=== PATIENT | female | born 1960 | race Caucasian/White ===

== ENCOUNTER 2017-02-03 07:34 | Inpatient (IN) | payer MEDICARE, OTHER ==
[2017-02-03] VITALS (8 sets, daily range): BP systolic 121–148; BP diastolic 69–85; PULSE 67–90; RESP 18–22; TEMP 96.4–99.3; O2SAT 84–98
[~2017-02-03] VITALS: Ht 157.5 cm; Wt 75.0 kg
[~2017-02-03 07:34] MED LIST: ACET650T10; CALC500; CARB100S; CLEO300C2; DIAZ5; DOCU100S; FLUO20SO3; LEVS0.124; LOPE1LIQ3; LORA10TA7; LORA2CON; LORT5TAB; TAB-TAB; TRIH2ELI
--- NOTE | 2017-02-03 07:59 | PD ---
HPI Chief Complaint: knee pain Time Seen by Provider: 07:49 Travel History International Travel<30 days: No Contact w/Intl Traveler<30days: No History of Present Illness HPI 56-year-old female presents with right knee pain over the past couple of days. She had an outpatient x-ray of the which showed osteoporosis without fracture. She has prior traumatic brain injury and cannot give me significant additional details but states no other concurrent complaints. She presents by ambulance and has detention paperwork. PFSH Past Medical History Narrative Medical By records Arthritis: No Asthma: No Autoimmune Disease: No Blood Disorders: No Anxiety: Yes Depression: Yes Heart Rhythm Problems: No Cancer: No Cardiovascular Problems: No High Cholesterol: No Chemotherapy: No Chest Pain: No Congestive Heart Failure: No COPD: No Cerebrovascular Accident: No Diabetes: No Diminished Hearing: No Endocrine: No Gastrointestinal Disorders: Yes (MALNUTRITION) GERD: No Glaucoma: No Genitourinary: No Headaches: No Hepatitis: No Hiatal Hernia: No Hypertension: No Immune Disorder: No Kidney Stones: No Musculoskeletal: No Neurologic: Yes Psychiatric: Yes Reproductive: No Respiratory: No Migraines: No Myocardial Infarction: No Radiation Therapy: No Renal Failure: No Seizures: Yes Sickle Cell Disease: No Sleep Apnea: No Thyroid Disease: No Ulcer: No Past Surgical History Narrative Surgical By records Abdominal Surgery: No AICD: No Appendectomy: No Arteriovenous Shunt: No Body Medical Devices: PEG TUBE LLQ Cardiac Surgery: No Cholecystectomy: No Ear Surgery: No Endocrine Surgery: Yes (TONSILLECTOMY) Eye Surgery: No Genitourinary Surgery: No Gynecologic Surgery: Yes (CHELSEY) Hysterectomy: Yes Insulin Pump: No Joint Replacement: No Neurologic Surgery: No Oral Surgery: No Pacemaker: No Thoracic Surgery: No Tonsillectomy: Yes Social History Alcohol Use: No Tobacco Use: No Substance Use: No Allergies-Medications (Allergen,Severity, Reaction): Coded Allergies: Penicillin (Verified Allergy, Severe, unknown, 03/12/07) Pseudoephedrine (Verified Allergy, Severe, unknown, 03/12/07) Reported Meds & Prescriptions Reported Meds & Active Scripts Active Reported Baclofen 10 Mg Tab 10 Mg PO TID Ativan (Lorazepam) 0.5 Mg Tab 0.5 Mg PO Q8H PRN Fosamax (Alendronate Sodium) 70 Mg Tab 70 Mg PO Q7D Trihexyphenidyl (Trihexyphenidyl HCl) 2 Mg Tab 2 Mg PO TID Zanaflex (Tizanidine HCl) 2 Mg Cap 2 Mg PO TID Glycopyrrolate 1 Mg Tab 1 Mg PO TID Singulair (Montelukast Sodium) 10 Mg Tab 10 Mg PO DAILY Nuedexta 20-10 mg (Dextromethorphan HBr-Quinidine) 1 Cap Cap 1 Cap PO BID Nuedexta 20-10 mg (Dextromethorphan HBr-Quinidine) 1 Cap Cap 1 Cap PO DAILY Calcium 600 (Calcium Carbonate) 1,500 Mg Tab 600 Mg PO Calcium 600 (Calcium Carbonate) 1,500 Mg Tab 1,500 Mg PO Milk of Magnesia Liq (Magnesium Hydroxide) 400 Mg/5 Ml Susp 30 Ml PO ONCE Tegretol (Carbamazepine) 200 Mg Tab 200 Mg PO BID Urecholine (Bethanechol Chloride) 25 Mg Tab 25 Mg PO Q8HR Tegretol (Carbamazepine) 200 Mg Tab 200 Mg PO BID Vitamin D3 (Cholecalciferol) 1,000 Unit Tab 1,000 Units PO DAILY Mobic (Meloxicam) 15 Mg Tab 15 Mg PO DAILY Tylenol (Acetaminophen) 325 Mg Tab 325 Mg PO BID Bisacodyl EC (Bisacodyl) 5 Mg Tabec 5 Mg PO DAILY PRN Review of Systems ROS Limitations: Poor Historian Physical Exam Exam Limitations: Poor Historian Narrative GENERAL: Pleasant, well-developed patient. SKIN: Warm and dry. HEAD: Normocephalic and atraumatic. EYES: No injection or drainage. ENT: No nasal drainage noted. NECK: Supple, trachea midline. CARDIOVASCULAR: Regular rate and rhythm RESPIRATORY: Breath sounds equal bilaterally at apices. No accessory muscle use. GASTROINTESTINAL: Abdomen nondistended. EXTREMITIES: Pain with palpation of right knee with mild swelling, no pain with other joints , neurovascularly intact, no lacerations over, compartments soft. NEUROLOGICAL: Awake, contractures noted, will answer yes or no Data Data Last Documented VS Vital Signs Date Time Temp Pulse Resp B/P Pulse Ox O2 Delivery O2 Flow Rate FiO2 02/03/17 07:45 98.8 90 20 141/80 84 Orders Magnesium (Mg) (02/03/17 07:49) Phosphorus (Po4) (02/03/17 07:49) Complete Blood Count With Diff (02/03/17 07:49) Basic Metabolic Panel (Bmp) (02/03/17 07:49) Act Partial Throm Time (Ptt) (02/03/17 07:49) Prothrombin Time / Inr (Pt) (02/03/17 07:49) Chest, Single Ap (02/03/17 ) Iv Access Insert/Monitor (02/03/17 07:49) Ecg Monitoring (02/03/17 07:49) Oximetry (02/03/17 07:49) Us Leg Venous Doppler Bilat (02/03/17 ) Ct Pulmonary Angiogram (02/03/17 ) Vascular Access Team Consult/P PRN (02/03/17 08:31) Vascular Poc Ultrasound (02/03/17 ) Ketorolac Inj (Toradol Inj) (02/03/17 09:15) Iohexol 350 Inj (Omnipaque 350 Inj) (02/03/17 09:54) B-Type Natriuretic Peptide (02/03/17 10:25) Admit Order (Ed Use Only) (02/03/17 10:27) Labs Laboratory Tests Test 02/03/17 09:00 White Blood Count 8.3 TH/MM3 Red Blood Count 3.53 MIL/MM3 Hemoglobin 11.9 GM/DL Hematocrit 34.1 % Mean Corpuscular Volume 96.5 FL Mean Corpuscular Hemoglobin 33.7 PG Mean Corpuscular Hemoglobin 34.9 % Concent Red Cell Distribution Width 14.1 % Platelet Count 223 TH/MM3 Mean Platelet Volume 8.4 FL Neutrophils (%) (Auto) 80.7 % Lymphocytes (%) (Auto) 10.2 % Monocytes (%) (Auto) 5.6 % Eosinophils (%) (Auto) 2.8 % Basophils (%) (Auto) 0.7 % Neutrophils # (Auto) 6.7 TH/MM3 Lymphocytes # (Auto) 0.8 TH/MM3 Monocytes # (Auto) 0.5 TH/MM3 Eosinophils # (Auto) 0.2 TH/MM3 Basophils # (Auto) 0.1 TH/MM3 CBC Comment DIFF FINAL Differential Comment Prothrombin Time 10.6 SEC Prothromb Time International 1.0 RATIO Ratio Activated Partial 34.9 SEC Thromboplast Time Sodium Level 136 MEQ/L Potassium Level 4.2 MEQ/L Chloride Level 101 MEQ/L Carbon Dioxide Level 29.0 MEQ/L Anion Gap 6 MEQ/L Blood Urea Nitrogen 21 MG/DL Creatinine 0.63 MG/DL Estimat Glomerular Filtration 97 ML/MIN Rate Random Glucose 123 MG/DL Calcium Level 8.9 MG/DL Phosphorus Level 3.1 MG/DL Magnesium Level 2.3 MG/DL MDM Medical Decision Making Medical Screen Exam Complete: Yes Emergency Medical Condition: Yes Medical Record Reviewed: Yes (past history confirmed) Interpretation(s) CBC & BMP Diagram 02/03/17 09:00 Last 24 hours Impressions Lower Extremity Ultrasound 02/03/17 0000 Signed Impressions: Service Date/Time: Friday, February 03, 2017 08:31 - CONCLUSION: Negative for deep venous thrombosis. Harvey Montano MD FACR Chest X-Ray 02/03/17 0000 Signed Impressions: Service Date/Time: Friday, February 03, 2017 07:48 - CONCLUSION: Underated otherwise negative. Harvey Montano MD FACR CT Angiography 02/03/17 0000 Signed Impressions: Service Date/Time: Friday, February 03, 2017 09:49 - CONCLUSION: Probable mild congestive failure without central pulmonary emboli. Harvey Montano MD FACR Differential Diagnosis DVT, PE, pneumonia, strain, arthritis Narrative Course Will check blood work, chest x-ray, Doppler ultrasound and reevaluate Hypoxemia with possible mild CHF on CT. Patient still requiring oxygen. We'll admit to the hospital for further workup. Right knee may need MRI in-house versus outpatient but is not emergent at this time already had outpatient x-ray recently that was negative, patient has no fever or white count and no DVT on ultrasound Physician Communication Physician Communication dr wilburn states to place in observation, will place orders in one hour Diagnosis Primary Impression: Hypoxia Additional Impression: Knee pain Qualified Code: M25.561 - Acute pain of right knee Admitting Information Admitting Physician Requests: Observation Inga Berry MD Feb 03, 2017 07:58
--- NOTE | 2017-02-03 08:22 | RADRPT ---
EXAM DATE/TIME: 02/03/2017 07:48 [facility] COMPARISON: No previous studies available for comparison. INDICATIONS : Palpitations MEDICAL HISTORY : None. SURGICAL HISTORY : None. ENCOUNTER: Initial ACUITY: 1 day PAIN SCORE: Non-responsive. LOCATION: chest FINDINGS: The lungs are under aerated but clear. The heart and pulmonary vascularity are normal. Degenerative changes are present about both shoulders. CONCLUSION: Underated otherwise negative. Harvey Montano MD FACR on February 03, 2017 at 8:19 Board Certified Radiologist. This report was verified electronically.
--- NOTE | 2017-02-03 09:02 | RADRPT ---
EXAM DATE/TIME: 02/03/2017 08:31 [facility] COMPARISON: No previous studies available for comparison. INDICATIONS : Bilateral leg swelling. MEDICAL HISTORY : Gastroesophageal reflux disease. Genetic torsional dystonia. Cauda equina syndrome. Pseudobulbar af fect. SURGICAL HISTORY : Tonsillectomy.Hysterectomy. ENCOUNTER: Initial ACUITY: 1 day PAIN SCORE: Non-responsive LOCATION: Bilateral legs. TECHNIQUE: Venous ultrasound of the left and right leg was performed from the inguinal ligament to the proximal calf. Real-time, color Doppler and spectral tracing, compression and augmentation techniques were us ed. FINDINGS: RIGHT LEG: There is normal compressibility of the deep venous system from the inguinal region to the proximal ca lf. No echogenic clot is seen in the lumen of the common femoral, femoral, popliteal, and posterior tibial veins. There is a normal response of the venous system to proximal and distal augmentation an d respiration. LEFT LEG: There is normal compressibility of the deep venous system from the inguinal region to the proximal ca lf. No echogenic clot is seen in the lumen of the common femoral, femoral, popliteal, and posterior tibial veins. There is a normal response of the venous system to proximal and distal augmentation an d respiration. CONCLUSION: Negative for deep venous thrombosis. Harvey Montano MD FACR on February 03, 2017 at 9:00 Board Certified Radiologist. This report was verified electronically.
[2017-02-03] MEDS ORDERED: MILKSUS PO (09:04)
[2017-02-03] MEDS ORDERED: TRIH2 PO (09:04)
[2017-02-03] MEDS ORDERED: VITA100064 PO (09:04)
[2017-02-03] MEDS ORDERED: BETH25 PO (09:04)
[2017-02-03] MEDS ORDERED: MONT10TA2 PO (09:04)
[2017-02-03] MEDS ORDERED: FLEE5TAB PO (09:04)
[2017-02-03] MEDS ORDERED: NUED20CA PO ×2 (09:04)
[2017-02-03] MEDS ORDERED: MOBI15TA PO (09:04)
[2017-02-03] MEDS ORDERED: BACL10TA PO (09:04)
[2017-02-03] MEDS ORDERED: FOSA70TA PO (09:04)
[2017-02-03] MEDS ORDERED: LORA-392 PO (09:04)
[2017-02-03] MEDS ORDERED: ZANA2CAP PO (09:04)
[2017-02-03] MEDS ORDERED: TEGR200T PO ×2 (09:04)
[2017-02-03] MEDS ORDERED: GLYC1TAB17 PO (09:04)
[2017-02-03] MEDS ORDERED: CALCTAB94 PO (09:04)
[2017-02-03] MEDS ORDERED: TYLE325T PO (09:04)
[2017-02-03] MEDS ORDERED: KETOROLAC TROMETHAMINE 30 MG/ML (IVP) VIAL IV PUSH ONE (09:15)
[2017-02-03 09:18] LABS: AUTOMATED NEUTROPHIL # 6.7 TH/MM3 (1.8-7.7); BASOPHIL # 0.1 TH/MM3 (0-0.2); BASOPHIL % 0.7 % (0.0-2.0); EOSINOPHIL # 0.2 TH/MM3 (0-0.4); EOSINOPHIL % 2.8 % (0.0-4.0); HEMATOCRIT 34.1 % (35.0-46.0); HEMO FLAGS DIFF FINAL; LYMPH % 10.2 % (9.0-44.0); LYMPHOCYTE # 0.8 TH/MM3 (1.0-4.8); MEAN CELL VOLUME 96.5 FL (80.0-100.0); MEAN CORPUSCULAR HEMOGLOBIN 33.7 PG (27.0-34.0); MEAN CORPUSCULAR HGB CONC 34.9 % (32.0-36.0); MONO % 5.6 % (0.0-8.0); NEUT % 80.7 % (16.0-70.0); PLATELET COUNT 223 TH/MM3 (150-450); RED BLOOD COUNT 3.53 MIL/MM3 (4.00-5.30); RED CELL DISTRIBUTION WIDTH 14.1 % (11.6-17.2); WHITE BLOOD COUNT 8.3 TH/MM3 (4.0-11.0)
[2017-02-03 09:27] LABS: APTT (PATIENT) 34.9 SEC (24.3-30.1); PROTHROMBIN TIME - PATIENT 10.6 SEC (9.8-11.6)
[2017-02-03 09:31] LABS: MAGNESIUM 2.3 MG/DL (1.5-2.5); POTASSIUM 4.2 MEQ/L (3.5-5.1)
[2017-02-03] MEDS ORDERED: IOHEXOL 350 MG/ML 10 ML VIAL (for RAD DIAG) IV ONE (09:54)
--- NOTE | 2017-02-03 10:23 | RADRPT ---
EXAM DATE/TIME: 02/03/2017 09:49 [facility] COMPARISON: No previous studies available for comparison. INDICATIONS : Shortness of breath. IV CONTRAST: 75 cc Omnipaque 350 (iohexol) IV RADIATION DOSE: 19.06 CTDIvol (mGy) ; Patient positioning; Patient body habitus MEDICAL HISTORY : Cauda equina syndrome SURGICAL HISTORY : Peg tube ENCOUNTER: Initial ACUITY: 1 day PAIN SCALE: 10/10 LOCATION: Bilateral chest TECHNIQUE: Volumetric scanning of the chest was performed using a pulmonary embolism protocol MIP images were re constructed. Using automated exposure control and adjustment of the mA and/or kV according to patien t size, radiation dose was kept as low as reasonably achievable to obtain optimal diagnostic quality images. DICOM format image data is available electronically for review and comparison. Follow-up recommendations for incidentally detected pulmonary nodules are based at a minimum on nodul e size and patient risk factors according to Fleischner Society Guidelines. FINDINGS: There is mild interstitial edema and minimal cardiomegaly. There are no suspicious lung lesions iden tified. There is no evidence for central pulmonary emboli. There is no axillary or mediastinal olga opathy. There is no pericardial effusion. Degenerative changes are present in the thoracic spine. spine. CONCLUSION: Probable mild congestive failure without central pulmonary emboli. Harvey Montano MD FACR on February 03, 2017 at 10:20 Board Certified Radiologist. This report was verified electronically.
[2017-02-03] MEDS ORDERED: NALOXONE HCL 0.4 MG/ML AMP IV PRN (13:00)
[2017-02-03] MEDS ORDERED: ONDANSETRON HCL 4 MG/2 ML VIAL IVP PRN (13:00)
[2017-02-03] MEDS ORDERED: SODIUM CHLORIDE 0.9% FLUSH 10 ML FLUSH IV FLUSH PRN (13:00)
[2017-02-03] MEDS ORDERED: FUROSEMIDE 20 MG/2 ML VIAL IV PUSH ONE (13:00)
--- NOTE | 2017-02-03 13:35 | HHI.PR ---
Vitals/Results Vital Signs Vital Signs Date Time Temp Pulse Resp B/P Pulse Ox O2 Delivery O2 Flow Rate FiO2 02/03/17 12:21 87 144/85 97 Nasal Cannula 02/03/17 11:10 84 22 140/74 94 Nasal Cannula 3 02/03/17 07:45 98.8 90 20 141/80 84 CBC/BMP: 02/03/17 0900 02/03/17 0900 Lab Results Laboratory Tests Test 02/03/17 09:00 White Blood Count 8.3 TH/MM3 Red Blood Count 3.53 MIL/MM3 Hemoglobin 11.9 GM/DL Hematocrit 34.1 % Mean Corpuscular Volume 96.5 FL Mean Corpuscular Hemoglobin 33.7 PG Mean Corpuscular Hemoglobin 34.9 % Concent Red Cell Distribution Width 14.1 % Platelet Count 223 TH/MM3 Mean Platelet Volume 8.4 FL Neutrophils (%) (Auto) 80.7 % Lymphocytes (%) (Auto) 10.2 % Monocytes (%) (Auto) 5.6 % Eosinophils (%) (Auto) 2.8 % Basophils (%) (Auto) 0.7 % Neutrophils # (Auto) 6.7 TH/MM3 Lymphocytes # (Auto) 0.8 TH/MM3 Monocytes # (Auto) 0.5 TH/MM3 Eosinophils # (Auto) 0.2 TH/MM3 Basophils # (Auto) 0.1 TH/MM3 CBC Comment DIFF FINAL Differential Comment Prothrombin Time 10.6 SEC Prothromb Time International 1.0 RATIO Ratio Activated Partial 34.9 SEC Thromboplast Time Sodium Level 136 MEQ/L Potassium Level 4.2 MEQ/L Chloride Level 101 MEQ/L Carbon Dioxide Level 29.0 MEQ/L Anion Gap 6 MEQ/L Blood Urea Nitrogen 21 MG/DL Creatinine 0.63 MG/DL Estimat Glomerular Filtration 97 ML/MIN Rate Random Glucose 123 MG/DL Calcium Level 8.9 MG/DL Phosphorus Level 3.1 MG/DL Magnesium Level 2.3 MG/DL Assessment/Plan Assessment/Plan patient seen and examined pLease refer to admission H & P for details 56 yr old female with h/o TBI admiited with hypoxia consult pulm oxygen no PE echo Lasix 20 mg i/v x 1 no fever, or leucocytosis to suggest an infectious process monitor off antibiotics no family at bedside Nnii Dalton MD Feb 03, 2017 13:35
[2017-02-03] MEDS: HEPARIN SODIUM - SQ 10,000 UNITS/ML VIAL SQ SCH (16:03)
--- NOTE | 2017-02-03 17:12 | MB ---
cc: ANG GRUBER DATE OF CONSULTATION: 02/03/2017. REASON FOR CONSULTATION: Pulmonary management and hypoxia. REQUESTING PHYSICIAN: Dr. Nini Dalton. HISTORY OF PRESENT ILLNESS: Ms. Still is a 56-year-old female who has a history of organic brain syndrome, seizure disorder and history of torticollis. She has received Botox injections. The patient was brought to the emergency room with shortness of breath. The patient is not able to give much history. She starts crying if you ask her any questions. She was evaluated in the emergency room. She had a blood gas done, which showed pH of 7.31, pC02 of 56, p02 of 89, bicarbonate 27. Her white blood cell count is 8.3, hemoglobin 11.9, hematocrit 34.1, MCV 96, platelet count 223,000. Sodium 136, potassium 4.2, chloride 101, carbon dioxide 29, BUN 26, creatinine 0.63. She had a CTA of the chest done and it does not show any pulmonary embolism. She has mild vascular congestion. Ultrasound of the lower extremities does not show any DVT. PAST MEDICAL HISTORY: Her past medical history is significant for: 1. History of seizure disorder. 2. Organic brain syndrome. 3. Traumatic brain injury. 4. History of idiopathic torsional dystonia. 5. History of multiple Botox injections for torticollis. 6. History of dysphagia and PEG-tube placement. MEDICATIONS: She is currently takin. IV fluids. 2. Subcutaneous heparin. ALLERGIES: 1. PENICILLIN. 2. PSEUDOEPFEDRINE. SOCIAL HISTORY: Not available. FAMILY HISTORY: Not available. REVIEW OF SYSTEMS: A review of systems cannot be assessed. PHYSICAL EXAMINATION: GENERAL: An elderly female on nasal cannula. She has mild shortness of breath. VITAL SIGNS: Blood pressure 148/75, heart rate 71, respirations 18, temperature 98.3. HEAD, EYES, EARS, NOSE, THROAT: Pupils are equal and reactive. Oral mucosa and nasal mucosa are normal. NECK: The neck is supple. JVP not raised. CHEST: Air entry equal bilaterally. No rhonchi. CARDIOVASCULAR: S1-S2 normal. ABDOMEN: Abdomen benign. EXTREMITIES: She has contractures. IMPRESSION: 1. Shortness of breath, mild. 2. Hypoxia. 3. There is no pulmonary embolism. 4. No DVT. 5. History of traumatic brain injury and organic brain syndrome. 6. Dysphagia. 7. Torticollis and torsional dystonia. PLAN: 1. I will supplement her oxygen. 2. Keep the saturation greater than 92%. 3. Aerosol treatment as needed. 4. Monitor her electrolytes. Further treatment will depend on the course in the hospital. Thank you, Dr. Dalton, for this consult. MD BHAVANI Yanes/ECTOR /4:05 PM /4:58 PM [facility]
[2017-02-03] MEDS: ACETAMINOPHEN 325 MG TAB PO PRN (17:30)
[2017-02-03] MEDS ORDERED: BISACODYL EC 5 MG TABEC PO PRN (18:15)
[2017-02-03] MEDS ORDERED: MAGNESIUM HYDROXIDE SUSP 30 ML CUP PO SCH (18:15)
--- NOTE | 2017-02-03 18:15 | HHI.PR ---
Objective Objective Results - Vital Signs Date Time Temp Pulse Resp B/P Pulse Ox O2 Delivery O2 Flow Rate FiO2 02/03/17 13:55 74 18 148/75 02/03/17 12:21 87 144/85 97 Nasal Cannula 02/03/17 11:10 84 22 140/74 94 Nasal Cannula 3 02/03/17 07:45 98.8 90 20 141/80 84 Result Diagram: 02/03/17 0900 02/03/17 0900 A/P Assessment and Plan Dictated, [id number] Lucina Tamayo Feb 03, 2017 18:15
--- NOTE | 2017-02-03 18:54 | MH ---
cc: RADHA CHAUDHRY DATE OF ADMISSION 02/03/2017 DATE OF 1960 CHIEF COMPLAINT Per the ER records knee pain. Travel in the last 30 days none. HISTORY OF PRESENT ILLNESS This is a 56-year-old white female who has complained of right knee pain for the last couple of days. On examination the knee is obviously swollen and very painful to touch. She has a blue- looking gel that has been rubbed in to the knee which appears to be Biofreeze and there is currently an ice pack on the knee but she still complains of pain. The patient while in the emergency room had some hypoxiam, was placed on oxygen and was admitted for further evaluation. The patient has a history of traumatic brain injury according to the record but can communicate with her hands and sign language and does shake her head yes and no. The patient is a poor historian and is unable to give situational data. The history is being gathered from the record. PAST MEDICAL HISTORY Includes: 1. Anxiety. 2. Depression. 3. Malnutrition. 4. Neurological disorders. 5. Psychiatric disorders. 6. Seizures. 7. Traumatic brain injury. PAST SURGICAL HISTORY 1. PEG tube left lower quadrant. 2. Tonsillectomy. 3. Hysterectomy. ALLERGIES PENICILLIN, PSEUDOEPHEDRINE. MEDICATIONS Reported: 1. Baclofen. 2. Ativan. 3. Fosamax. 4. Zanaflex. 5. Singulair. 6. . 7. Trihexyphenidyl. 8. Glycopyrrolate. 9. Calcium. 10. Milk of Magnesia. 11. Tegretol. 12. Urecholine. 13. Vitamins. 14. Mobic. 15. Tylenol. 16. Dulcolax. SOCIAL HISTORY The patient currently lives in an [facility]. There is no alcohol, tobacco or illicit drugs noted. REVIEW OF SYSTEMS Poor historian, although the patient does respond to raising her hand and finger up to knee pain. PHYSICAL EXAMINATION VITAL SIGNS: Temperature 98.8, pulse 74, respiratory rate between 18-22. Blood pressure 148/75. O2 saturation originally was 84 in the emergency room and now 97 on 3 liters nasal cannula. GENERAL: This is a short white female looks older than her stated age, resting in the bed. SKIN: Her skin is pale, warm and dry. HEENT: Normocephalic. Eyes, small amount of serous drainage noted to the left eye. No nasal or oral drainage noted. NECK: Short, contorted, bent over where her chin is touching her chest. CARDIOVASCULAR: Rhythm is regular. No obvious murmur or gallop. RESPIRATORY: Decreased breath at her bases. Active rhonchi with cough. ABDOMEN: Round, soft, nondistended. EXTREMITIES: Right knee with moderate amount of swelling, painful to touch. Hands and feet both have contractures. Warm to touch. She is able to use her fingers for communication raising them up or down. NEUROLOGIC: Awake, will shake her head sometimes to simple yes or no questions. LABORATORY DATA Diagnostic data, white blood cell count 8.3, RBC 3.53. Hemoglobin 11.9. Hematocrit 34.1. Neutrophils percentage auto 80.7. PT INR 1.0. Chemistries, sodium 136, potassium 4.2, chloride 101, carbon dioxide 29, anion gap 6, BUN 21, creatinine 0.63. GFR 97. Random glucose 123. BNP 47. Magnesium 2.3. Phosphorus 3.1. Calcium 8.9. IMAGING Showed lower extremity ultrasound negative for DVT. Chest x-ray under-aerated otherwise negative. CT angiography shows mild congestive heart failure without central pulmonary emboli. ASSESSMENT 1. Congestive heart failure. 2. Hypoxia now controlled. 3. History of traumatic brain injury. 4. Acute kidney injury with mild dehydration. 5. Hyperglycemia, mild in the presence of non diabetes. 6. Right knee pain with edema. The patient can have ice packs to her knee and Tylenol for pain. 7. We will reconcile her medications as warranted. PLAN Our plan is to admit. We will monitor her oxygen levels. She did have an episode in the ER with her O2 sat had dropped. She is now maintained on O2 at 2-3 liters. Labs have been reviewed and will be rechecked in the morning. Vascular consult was ordered but has now been cancelled, pulmonary emboli has been ruled out. The patient did receive Toradol 30 mg IV x1 in the emergency room and will receive Tylenol for pain until her O2 sat remains stable. The patient did receive one dose of Lasix 20 mg IV. 2-D echo will be ordered. We will monitor her BNP. DVT prophylaxis with heparin. As neededs have been ordered to cover pain and nausea. Her diet is a regular diet. She has a decreased appetite but is eating chocolate ice cream and chocolate pudding. We will keep her on telemetry, monitor her vital signs q.4h. We have changed her admission to an inpatient status. To my knowledge the patient is full code, full aggressive care and we will continue to monitor. Dictated by: XUAN York MD EDUARD Smith/KK /6:00 PM /6:19 PM
[2017-02-03] MEDS ORDERED: ALENDRONATE SODIUM 70 MG TAB PO SCH (20:00)
[2017-02-03] MEDS: ACETAMINOPHEN 325 MG TAB PO SCH (20:16)
[2017-02-03] MEDS: carBAMazepine 200 MG TAB PO SCH (20:16)
[2017-02-03] MEDS: SODIUM CHLORIDE 0.9% FLUSH 10 ML FLUSH IV FLUSH SCH (21:00)
[2017-02-03] MEDS: BETHANECHOL CHL 25 MG TAB PO SCH (21:17)
[2017-02-04] VITALS (8 sets, daily range): BP systolic 97–124; BP diastolic 42–73; PULSE 59–93; RESP 16–19; TEMP 96.8–98.7; O2SAT 94–100
[2017-02-04] MEDS: HEPARIN SODIUM - SQ 10,000 UNITS/ML VIAL SQ SCH ×2 (00:11→15:32)
[2017-02-04] MEDS: ACETAMINOPHEN 325 MG TAB PO PRN ×2 (04:45→15:31)
[2017-02-04] MEDS: BETHANECHOL CHL 25 MG TAB PO SCH ×3 (04:45→20:53)
[2017-02-04 06:26] LABS: AUTOMATED NEUTROPHIL # 3.8 TH/MM3 (1.8-7.7); BASOPHIL % 0.6 % (0.0-2.0); EOSINOPHIL # 0.3 TH/MM3 (0-0.4); EOSINOPHIL % 4.9 % (0.0-4.0); HEMO FLAGS DIFF FINAL; LYMPH % 18.9 % (9.0-44.0); LYMPHOCYTE # 1.1 TH/MM3 (1.0-4.8); MEAN CELL VOLUME 97.8 FL (80.0-100.0); MEAN CORPUSCULAR HGB CONC 33.7 % (32.0-36.0); MONO % 7.7 % (0.0-8.0); NEUT % 67.9 % (16.0-70.0); PLATELET COUNT 217 TH/MM3 (150-450); RED BLOOD COUNT 3.17 MIL/MM3 (4.00-5.30); RED CELL DISTRIBUTION WIDTH 14.1 % (11.6-17.2); WHITE BLOOD COUNT 5.6 TH/MM3 (4.0-11.0)
[2017-02-04 06:46] LABS: BICARBONATE 28.9 MEQ/L (21.0-32.0)
[2017-02-04] MEDS ORDERED: DEXTROMETHORPHAN HBR QUINIDINE PO SCH (09:00)
[2017-02-04] MEDS: MELOXICAM 15 MG TAB PO SCH (10:19)
[2017-02-04] MEDS: BACLOFEN 10 MG TAB PO SCH ×3 (10:19→18:55)
[2017-02-04] MEDS: carBAMazepine 200 MG TAB PO SCH ×2 (10:20→20:52)
[2017-02-04] MEDS: GLYCOPYRROLATE 1 MG TAB PO SCH ×3 (10:20→18:54)
[2017-02-04] MEDS: ACETAMINOPHEN 325 MG TAB PO SCH ×2 (10:20→20:52)
[2017-02-04] MEDS: TRIHEXYPHENIDYL HCL 2 MG TAB PO SCH ×3 (10:20→18:55)
[2017-02-04] MEDS: MONTELUKAST SODIUM 10 MG TAB PO SCH (10:21)
[2017-02-04] MEDS: SODIUM CHLORIDE 0.9% FLUSH 10 ML FLUSH IV FLUSH SCH ×2 (10:21→20:53)
[2017-02-04] MEDS ORDERED: RESP: ALBUTEROL 2.5 MG/IPRATROPIUM 0.5 MG NEB (PRN) NEB (14:00)
[2017-02-04] MEDS ORDERED: FUROSEMIDE 20 MG/2 ML VIAL IV PUSH ONE (14:00)
--- NOTE | 2017-02-04 15:24 | HHI.PR ---
Subjective Subjective Remarks non verbal moaning, anxious c/o pain, points to right knee contractures to all extremities coughing, audible rales nasal congestion no fever sats 95 on 2L/NC difficult to obtain ROS Review of Systems Constitutional Constitutional Remarks 12 point ROS difficult to complete. Vitals/Results Intake & Output 02/03/17 02/03/17 02/04/17 15:00 23:00 07:00 Intake Total 60 ml 120 ml Balance 60 ml 120 ml Intake Oral 60 ml 120 ml # Voids 2 3 # Bowel Movements 0 0 Vital Signs Vital Signs Date Time Temp Pulse Resp B/P Pulse Ox O2 Delivery O2 Flow Rate FiO2 02/04/17 11:36 98.2 80 19 101/46 95 02/04/17 09:53 97 Nasal Cannula 2.00 02/04/17 07:23 98.6 59 19 97/45 100 02/04/17 04:00 96.8 86 19 124/73 94 02/03/17 23:35 99.3 74 18 140/81 95 02/03/17 20:39 67 02/03/17 20:00 99.3 81 18 142/84 98 02/03/17 16:00 96.4 75 19 121/69 98 CBC/BMP: 02/04/17 0539 02/04/17 0539 Lab Results Laboratory Tests Test 02/04/17 05:39 White Blood Count 5.6 TH/MM3 Red Blood Count 3.17 MIL/MM3 Hemoglobin 10.5 GM/DL Hematocrit 31.0 % Mean Corpuscular Volume 97.8 FL Mean Corpuscular Hemoglobin 33.0 PG Mean Corpuscular Hemoglobin 33.7 % Concent Red Cell Distribution Width 14.1 % Platelet Count 217 TH/MM3 Mean Platelet Volume 8.2 FL Neutrophils (%) (Auto) 67.9 % Lymphocytes (%) (Auto) 18.9 % Monocytes (%) (Auto) 7.7 % Eosinophils (%) (Auto) 4.9 % Basophils (%) (Auto) 0.6 % Neutrophils # (Auto) 3.8 TH/MM3 Lymphocytes # (Auto) 1.1 TH/MM3 Monocytes # (Auto) 0.4 TH/MM3 Eosinophils # (Auto) 0.3 TH/MM3 Basophils # (Auto) 0.0 TH/MM3 CBC Comment DIFF FINAL Differential Comment Sodium Level 138 MEQ/L Potassium Level 4.0 MEQ/L Chloride Level 101 MEQ/L Carbon Dioxide Level 28.9 MEQ/L Anion Gap 8 MEQ/L Blood Urea Nitrogen 21 MG/DL Creatinine 0.56 MG/DL Estimat Glomerular Filtration 112 ML/MIN Rate Random Glucose 103 MG/DL Calcium Level 8.4 MG/DL B-Type Natriuretic Peptide 36 PG/ML Physical Exam General General Appearance: Well Developed, Anxious, Painful Eyes Eye Exam: Pupils Equal, Pupils Reactive Ears & Nose Ears & Nose Exam: Nasal Mucosa [place] Throat Throat Exam: Oral Mucosa [place] & Moist Neck Neck Exam: Neck Supple, Trachea Midline Pulmonary Resp Exam: Crackles Resp Remarks wheezing Cardiology CV Exam: Regular Gastrointestinal/Abdomen GI Exam: Soft, Non-Tender, Bowel Sounds Present, Non-Distended Musculoskeletal MS Exam: Rigidity, Unable to Ambulate MS Remarks contractures to hands, fingers, wrists, feet legs stiff Integumentary Skin Exam: Warm Extremeties Extremities Exam: Pedal Pulses Palpable, Trace Edema Neurologic Neuro Exam: Awake VTE Prophylaxis VTE Prophylaxis Device: SCDs Assessment/Plan Problem List: (1) Hypoxia (2) CHF (congestive heart failure) (3) Knee pain (4) Organic brain syndrome (5) Flexion contractures (6) Seizure disorder (7) Torticollis (8) Hx of traumatic brain injury Assessment/Plan 56-year-old female presented with right knee pain, noted hypoxic Mild CHF per x-ray findings, today noted with increased rales. Received Lasix in ED Hypoxia, etiology unclear, negative for PE We will resume Lasix, 20 mg IV twice a day -2-D echocardiogram pending -We will order DuoNeb's Continue with supplemental oxygen No antibiotics indicated at this time Pulmonology following, input appreciated Acute right knee pain, notable contractures Negative for DVT We will order x-ray of the right knee We will check uric acid -[place] 7.5/325 one tab by mouth every 4 when necessary for pain History of traumatic brain injury, organic brain syndrome, history of torticollis, has multiple contractures Physical therapy Continue with baclofen, Zanaflex, Mobic, Artane Seizure disorder -Seizure precautions Continue Tegretol SCDs for DVT prophylaxis Labs in the morning Discussed with patient Discussed with RN Discussed with Dr. Liz This patient was seen by myself and Dr. Liz, this note is written on his behalf Problem Qualifiers (1) CHF (congestive heart failure): Qualified Code: I50.9 - Acute congestive heart failure, unspecified congestive heart failure type (2) Knee pain: Qualified Code: M25.561 - Acute pain of right knee Berna Terrell Feb 04, 2017 15:24
[2017-02-04] MEDS: RESP: ALBUTEROL 2.5 MG/IPRATROPIUM 0.5 MG NEB (SCH) NEB ×2 (16:40→19:43)
--- NOTE | 2017-02-04 16:42 | RADRPT ---
EXAM DATE/TIME: 02/04/2017 16:12 [place] COMPARISON: No previous studies available for comparison. INDICATIONS : Right knee pain, unknown injury. MEDICAL HISTORY : None. SURGICAL HISTORY : None. ENCOUNTER: Initial ACUITY: 1 day PAIN SCORE: 10/10 LOCATION: Right knee. FINDINGS: There is a complete fracture of distal femur with impaction of the metaphysis into the femoral condyl es. There is diffuse osteopenia to a significant degree. CONCLUSION: Osteopenia and impacted distal femoral fracture. Elmer Morgan MD on February 04, 2017 at 16:39 Board Certified Radiologist. This report was verified electronically.
--- NOTE | 2017-02-04 17:38 | HHI.PR ---
Subjective Remarks 56 YOWF with Organic brain synd, CHF,Hypoxia braething betetr on 2 LNC Moans, follows simple commands C/o Right knee pain Objective Vital Signs Vital Signs Date Time Temp Pulse Resp B/P Pulse Ox O2 Delivery O2 Flow Rate FiO2 02/04/17 16:40 97 Nasal Cannula 2.00 02/04/17 15:21 98.7 93 19 108/63 98 02/04/17 11:36 98.2 80 19 101/46 95 02/04/17 09:53 97 Nasal Cannula 2.00 02/04/17 07:23 98.6 59 19 97/45 100 02/04/17 04:00 96.8 86 19 124/73 94 02/03/17 23:35 99.3 74 18 140/81 95 02/03/17 20:39 67 02/03/17 20:00 99.3 81 18 142/84 98 I/O 02/03/17 02/03/17 02/03/17 02/04/17 02/04/17 02/04/17 06:59 14:59 22:59 06:59 14:59 22:59 Intake Total 60 ml 120 ml 450 ml Balance 60 ml 120 ml 450 ml Intake Oral 60 ml 120 ml 450 ml # Voids 2 3 5 # Bowel Movements 0 0 1 Result Diagram: 02/04/1739 02/04/1739 Objective Remarks GENERAL: MBMN WF, mild sob SKIN: Warm and dry. HEAD: Normocephalic. EYES: No scleral icterus. No injection or drainage. NECK: Supple, trachea midline. No JVD or lymphadenopathy. CARDIOVASCULAR: Regular rate and rhythm without murmurs, gallops, or rubs. RESPIRATORY: Breath sounds equal bilaterally. No accessory muscle use. GASTROINTESTINAL: Abdomen soft, non-tender, nondistended. MUSCULOSKELETAL: No cyanosis, or edema. Contractures BACK: Nontender without obvious deformity. No CVA tenderness. A/P Assessment and Plan Organic brain syndrome Dysnoes, no PE or DVT Right Knee pain [place] PLAN: Supplement 02 pain controll Aerosol nebs PRN Xray knee ordered Vladimir Denise MD Feb 04, 2017 17:38
--- NOTE | 2017-02-04 18:38 | ECHRPT ---
Indication: heart failure CONCLUSIONS Very technically difficult study Overall in limited views, the ejection fraction is most likely normal or low normal, EF 50-55%. BP: / HR: Rhythm: MEASUREMENTS (Male / Female) Normal Values Technical Quality:Very technically difficult study 2D ECHO LV Diastolic Diameter PLAX 4.2 cm 4.2 - 5.9 / 3.9 - 5.3 cm LV Systolic Diameter PLAX 3.3 cm IVS Diastolic Thickness 0.7 cm 0.6 - 1.0 / 0.6 - 0.9 cm LVPW Diastolic Thickness 0.6 cm 0.6 - 1.0 / 0.6 - 0.9 cm LV Relative Wall Thickness 0.3 DOPPLER Mitral E Point Velocity 68.1 cm/s Mitral A Point Velocity 72.1 cm/s Mitral E to A Ratio 0.9 LV E' Lateral Velocity 10.1 cm/s Mitral E to LV E' Lateral Ratio 6.7 LV E' Septal Velocity 6.1 cm/s Mitral E to LV E' Septal Ratio 11.1 FINDINGS LEFT VENTRICLE Normal left ventricular size. Wall thickness is probably normal. Overall in limited views, the ejection fraction is most likely normal or low normal, EF 50-55% RIGHT VENTRICLE The right ventricle was not well visualized. LEFT ATRIUM The left atrium was not well visualized. RIGHT ATRIUM The right atrium is not well visualized. ATRIAL SEPTUM The interatrial septum not well visualized. AORTA The aortic root and proximal ascending aorta are not well visualized. MITRAL VALVE Trace mitral valve regurgitation. No mitral valve stenosis. AORTIC VALVE The aortic valve is not well visualized. No aortic valve stenosis. No aortic valve regurgitation. TRICUSPID VALVE The tricuspid valve is not well visualized. PULMONARY VALVE The pulmonary valve is not well visualized. VESSELS The inferior vena cava was not well visualized. Luis E Montoya DO (Electronically Signed) Final Date:04 February 2017 18:37
[2017-02-04] MEDS: ACETAMINOPHEN/HYDROcodone 325 MG/7.5 MG TAB PO PRN (18:54)
[2017-02-05] VITALS (9 sets, daily range): BP systolic 93–125; BP diastolic 42–65; PULSE 54–75; RESP 16–18; TEMP 97.5–98.5; O2SAT 92–100
[2017-02-05] MEDS: ACETAMINOPHEN/HYDROcodone 325 MG/7.5 MG TAB PO PRN ×5 (01:24→22:34)
[2017-02-05] MEDS: HEPARIN SODIUM - SQ 10,000 UNITS/ML VIAL SQ SCH ×2 (01:24→16:16)
[2017-02-05] MEDS: BETHANECHOL CHL 25 MG TAB PO SCH ×3 (05:56→22:33)
[2017-02-05 08:18] LABS: BICARBONATE 29.8 MEQ/L (21.0-32.0); POTASSIUM 3.8 MEQ/L (3.5-5.1)
[2017-02-05 08:30] LABS: HEMATOCRIT 29.6 % (35.0-46.0); MEAN CELL VOLUME 97.3 FL (80.0-100.0); MEAN CORPUSCULAR HEMOGLOBIN 32.5 PG (27.0-34.0); MEAN CORPUSCULAR HGB CONC 33.4 % (32.0-36.0); PLATELET COUNT 216 TH/MM3 (150-450); RED BLOOD COUNT 3.04 MIL/MM3 (4.00-5.30); RED CELL DISTRIBUTION WIDTH 13.8 % (11.6-17.2); REVIEW FLAG FINAL
[2017-02-05] MEDS: RESP: ALBUTEROL 2.5 MG/IPRATROPIUM 0.5 MG NEB (SCH) NEB ×4 (08:51→19:41)
[2017-02-05] MEDS: ACETAMINOPHEN 325 MG TAB PO SCH ×2 (09:00→22:33)
[2017-02-05] MEDS ORDERED: FUROSEMIDE 20 MG/2 ML VIAL IV PUSH SCH (09:00)
[2017-02-05] MEDS: carBAMazepine 200 MG TAB PO SCH ×2 (10:12→22:33)
[2017-02-05] MEDS: MONTELUKAST SODIUM 10 MG TAB PO SCH (10:12)
[2017-02-05] MEDS: GLYCOPYRROLATE 1 MG TAB PO SCH ×3 (10:13→19:28)
[2017-02-05] MEDS: TRIHEXYPHENIDYL HCL 2 MG TAB PO SCH ×3 (10:13→19:28)
[2017-02-05] MEDS: BACLOFEN 10 MG TAB PO SCH ×3 (10:13→19:28)
[2017-02-05] MEDS: MELOXICAM 15 MG TAB PO SCH (10:13)
[2017-02-05] MEDS: SODIUM CHLORIDE 0.9% FLUSH 10 ML FLUSH IV FLUSH SCH ×2 (10:14→22:33)
--- NOTE | 2017-02-05 13:18 | HHI.PR ---
Subjective Remarks non verbal. Communicating with her device. Complaining of pain in her leg right side from it to ankle mostly in the knee area. Needs some good pain medication contractures to all extremities coughing, some nasal congestion no fever sats 95 on 2L/NC offering no other complaint Review of system 12 point ROS difficult to complete. Objective Objective Results - Vital Signs Date Time Temp Pulse Resp B/P Pulse Ox O2 Delivery O2 Flow Rate FiO2 02/05/17 08:51 97 Nasal Cannula 2.00 02/05/17 08:00 97.9 54 18 104/58 92 02/05/17 04:01 98.1 60 18 102/42 98 02/05/17 00:00 97.7 61 16 108/55 99 02/04/17 20:47 Nasal Cannula 2.00 02/04/17 20:00 60 02/04/17 20:00 98.0 70 16 123/57 98 02/04/17 19:28 Room Air 02/04/17 16:40 97 Nasal Cannula 2.00 02/04/17 15:21 98.7 93 19 108/63 98 I/O 02/04/17 02/04/17 02/04/17 02/05/17 02/05/17 02/05/17 07:00 15:00 23:00 07:00 15:00 23:00 Intake Total 120 ml 450 ml 240 ml 240 ml Balance 120 ml 450 ml 240 ml 240 ml Intake Oral 120 ml 450 ml 240 ml 240 ml # Voids 3 5 1 1 # Bowel Movements 0 1 0 Result Diagram: 02/05/17 0620 02/05/17 0620 Other Results Laboratory Tests Test 02/05/17 06:20 White Blood Count 5.0 Red Blood Count 3.04 Hemoglobin 9.9 Hematocrit 29.6 Mean Corpuscular Volume 97.3 Mean Corpuscular Hemoglobin 32.5 Mean Corpuscular Hemoglobin 33.4 Concent Red Cell Distribution Width 13.8 Platelet Count 216 Mean Platelet Volume 8.0 Sodium Level 137 Potassium Level 3.8 Chloride Level 99 Carbon Dioxide Level 29.8 Anion Gap 8 Blood Urea Nitrogen 16 Creatinine 0.46 Estimat Glomerular Filtration 140 Rate Random Glucose 100 Calcium Level 8.4 Physical Exam Physical Exam General General Appearance: Well Developed, Anxious, Painful Eyes Eye Exam: Pupils Equal, Pupils Reactive Ears & Nose Ears & Nose Exam: Nasal Mucosa [place] Throat Throat Exam: Oral Mucosa [place] & Moist Neck Neck Exam: Neck Supple, Trachea Midline Pulmonary Resp Exam: good air entry bilaterally Resp Remarks Occasional wheezing bibasally Cardiology CV Exam: Regular Gastrointestinal/Abdomen GI Exam: Soft, Non-Tender, Bowel Sounds Present, Non-Distended Musculoskeletal MS Exam: Rigidity, Unable to Ambulate MS Remarks contractures to hands, fingers, wrists, feet legs stiff. Right lower extremity in soft cast Integumentary Skin Exam: Warm Extremeties Extremities Exam: Pedal Pulses Palpable, Trace Edema Neurologic Neuro Exam: Awake VTE Prophylaxis VTE Prophylaxis Device: SCDs A/P Assessment and Plan (1) Hypoxia (2) CHF (congestive heart failure) (3) Knee pain (4) Organic brain syndrome (5) Flexion contractures (6) Seizure disorder (7) Torticollis (8) Hx of traumatic brain injury Plan 56-year-old female presented with right knee pain, noted hypoxic Mild CHF per x-ray findings. Received Lasix in ED Hypoxia, etiology unclear, negative for PE We will resume Lasix, 20 mg IV twice a day -2-D echocardiogram pending -We will order DuoNeb's Continue with supplemental oxygen. Pulse ox of high 90s on 2 L No antibiotics indicated at this time Pulmonology following, input appreciated Acute right knee pain, notable contractures Negative for DVT distal femur fracture on x-ray of the right knee within normal limits uric acid -[place] 7.5/325 one tab by mouth every 4 when necessary for pain. Also had morphine on a when necessary basis. -Plan for orthopedic consult History of traumatic brain injury, organic brain syndrome, history of torticollis, has multiple contractures Physical therapy Continue with baclofen, Zanaflex, Mobic, Artane Seizure disorder -Seizure precautions Continue Tegretol SCDs And heparin for DVT prophylaxis Labs in the morning Discussed with patient Discussed with Yamila Leonard MD Feb 05, 2017 13:17
[2017-02-05] MEDS ORDERED: LIDOCAINE HCL 5% PATCH T-DERMAL SCH (14:00)
[2017-02-05] MEDS ORDERED: MORPHINE SULFATE 4 MG/ML INJ IV PUSH PRN (15:00)
--- NOTE | 2017-02-05 19:51 | HHI.PR ---
Subjective Remarks 56 YOWF with Organic brain synd, CHF,Hypoxia braething betetr on 2 C Moans, follows simple commands C/o Right knee pain Knee in brace Objective Vital Signs Vital Signs Date Time Temp Pulse Resp B/P Pulse Ox O2 Delivery O2 Flow Rate FiO2 02/05/17 19:43 97 Nasal Cannula 2.00 02/05/17 19:13 Nasal Cannula 2.00 02/05/17 16:00 98.5 61 18 125/65 100 02/05/17 12:00 97.5 58 18 93/50 95 02/05/17 08:51 97 Nasal Cannula 2.00 02/05/17 08:00 97.9 54 18 104/58 92 02/05/17 04:01 98.1 60 18 102/42 98 02/05/17 00:00 97.7 61 16 108/55 99 02/04/17 20:47 Nasal Cannula 2.00 02/04/17 20:00 60 02/04/17 20:00 98.0 70 16 123/57 98 I/O 02/04/17 02/04/17 02/04/17 02/05/17 02/05/17 02/05/17 07:00 15:00 23:00 07:00 15:00 23:00 Intake Total 120 ml 450 ml 240 ml 240 ml 360 ml Balance 120 ml 450 ml 240 ml 240 ml 360 ml Intake Oral 120 ml 450 ml 240 ml 240 ml 360 ml # Voids 3 5 1 1 3 # Bowel Movements 0 1 0 0 Result Diagram: 02/05/1720 02/05/17 0620 Objective Remarks GENERAL: MBMN WF, mild sob SKIN: Warm and dry. HEAD: Normocephalic. EYES: No scleral icterus. No injection or drainage. NECK: Supple, trachea midline. No JVD or lymphadenopathy. CARDIOVASCULAR: Regular rate and rhythm without murmurs, gallops, or rubs. RESPIRATORY: Breath sounds equal bilaterally. No accessory muscle use. GASTROINTESTINAL: Abdomen soft, non-tender, nondistended. MUSCULOSKELETAL: No cyanosis, or edema. Contractures BACK: Nontender without obvious deformity. No CVA tenderness. A/P Assessment and Plan Organic brain syndrome Dysnoes, no PE or DVT Right Knee pain [place] PLAN: Supplement 02 pain controll Aerosol nebs PRN PO Vladimir Berger MD Feb 05, 2017 19:50
[2017-02-05] MEDS ORDERED: REMOVE OLD LIDOCAINE PATCH T-DERMAL SCH (21:00)
[2017-02-06] VITALS (7 sets, daily range): BP systolic 101–112; BP diastolic 44–68; PULSE 65–77; RESP 16; TEMP 97.4–98.6; O2SAT 92–98
[2017-02-06] MEDS: HEPARIN SODIUM - SQ 10,000 UNITS/ML VIAL SQ SCH ×2 (02:20→12:30)
[2017-02-06] MEDS ORDERED: REMOVE OLD LIDOCAINE PATCH T-DERMAL SCH (04:00)
[2017-02-06] MEDS: BETHANECHOL CHL 25 MG TAB PO SCH ×2 (06:30→14:00)
[2017-02-06] MEDS: ACETAMINOPHEN/HYDROcodone 325 MG/7.5 MG TAB PO PRN ×3 (06:30→17:10)
[2017-02-06] MEDS: RESP: ALBUTEROL 2.5 MG/IPRATROPIUM 0.5 MG NEB (SCH) NEB ×3 (08:22→15:44)
--- NOTE | 2017-02-06 08:30 | MB ---
cc: MINDA ASCENCIO M.D. DATE OF CONSULTATION 02/05/17 CHIEF COMPLAINT Right knee pain. HISTORY OF PRESENT ILLNESS This is a 56-year-old white female who presented to the emergency department with complaints of right knee pain. The patient states the onset of pain was 5 or 6 days. The patient feels that the injury to the knee occurred when the ELECTRICIAN'S HELPER at her assisted-living facility was transferring her in a Abigail lift. The patient states she pushed down on her leg bending it backward. The patient had immediate pain. The patient does have a history of a traumatic brain injury and has a difficult time communicating. The patient does have a I-Pad type device that she can type on to communicate. This was used today during our conversation. The patient is a poor historian and has a difficult time giving situational data. REVIEW OF SYSTEMS Negative times 12 except for what is stated in the HPI. PAST MEDICAL HISTORY Includes anxiety, depression, neurologic disorders secondary to a traumatic brain injury, and seizures. PAST SURGICAL HISTORY Includes PEG tube placement, tonsillectomy, and hysterectomy. ALLERGIES PENICILLIN AND PSEUDOEPHEDRINE. MEDICATIONS Include: 1. Baclofen. 2. Ativan. 3. Fosamax. 4. Zanaflex. 5. Singulair. 6. Glycopyrrolate. 7. Calcium. 8. Milk of Magnesia. 9. Tegretol. 10. Vitamins. 11. Mobic. 12. Tylenol. 13. Dulcolax. SOCIAL HISTORY The patient currently lives in an CUSTODIAL. The patient denies alcohol, tobacco or illicit drug use. PHYSICAL EXAMINATION VITAL SIGNS: Are as follows: Temperature 97.9, pulse 54, respirations 18, blood pressure 104/58, pulse ox 92% on room air. GENERAL: The patient is a well-nourished white female in no acute distress. The patient does have some obvious contractures of the hands and feet. SKIN: The skin is pale, warm, and dry. HEENT: Head is normocephalic. Eyes are ELLIOT, nares are patent. NECK: Neck is supple and trachea is midline. CARDIOVASCULAR: The patient has regular rate and rhythm. RESPIRATORY: The patient has symmetric chest wall rise and nonlabored breathing. ABDOMEN: Abdomen is soft, round and nontender. EXTREMITIES: The patient does have contractures about the bilateral ankles and hands. The patient moves the left knee and hip without pain and is it nontender. The patient moves her bilateral wrists, elbows and shoulders without pain and is nontender. The patient does have moderate tenderness about the right knee with limited range of motion. The patient was wearing a canvas knee splint which was removed for examination. The patient's skin is intact about the right knee. NEUROLOGIC: The patient is awake and is able to communicate via an I-Pad type device. The patient also answers appropriately to questions. LABORATORY DATA Labs taken on 02/05/2017 shows white blood cells are 5, hemoglobin 9.9, hematocrit 29.6, platelets 216, creatinine is 0.46, glucose is 100. IMAGING STUDIES There is an x-ray two views of the right knee taken on 02/04/2017 which reads as osteopenia with impacted distal femoral fracture. I did review these images and agree with the radiologist's interpretation. IMPRESSION 1. Right distal femur, impacted fracture. 2. History of traumatic brain injury with difficulty communicating. 3. Bilateral ankle and wrist contractures. MEDICAL DECISION MAKING This is a difficult situation as the patient does have a history which is complicated with a traumatic brain injury. The patient normally is a non-ambulator secondary to contractures about the upper and lower extremities. After reviewing the images and the patient's general condition I do recommend nonoperative management for the right knee. I do not feel that surgery is going to benefit the patient's current quality of life. We had a lengthy discussion regarding this. The patient does agree with the plan of care. Currently, I have recommended a well-padded knee immobilizer to limit the patient's range of motion of the right knee and allow for healing. The patient will be non-weightbearing on the right lower extremity. The patient should use ice for swelling. We will manage the patient's pain with pain medication. We will see the patient in the office for close follow-up to ensure that the overall position of the fracture remains stable. I have reviewed the above impression and plan of care with Dr. Ascencio and he agrees with this documentation. Dictated by XUAN Kwok MD CHRIS Gallagher/ROSALBA /5:27 PM /8:25 AM
[2017-02-06] MEDS: SODIUM CHLORIDE 0.9% FLUSH 10 ML FLUSH IV FLUSH SCH (09:00)
[2017-02-06] MEDS ORDERED: FUROSEMIDE 20 MG TAB PO SCH (09:00)
[2017-02-06] MEDS: carBAMazepine 200 MG TAB PO SCH (10:30)
[2017-02-06] MEDS: ACETAMINOPHEN 325 MG TAB PO SCH (10:30)
[2017-02-06] MEDS: TRIHEXYPHENIDYL HCL 2 MG TAB PO SCH ×3 (10:31→17:10)
[2017-02-06] MEDS: MELOXICAM 15 MG TAB PO SCH (10:31)
[2017-02-06] MEDS: GLYCOPYRROLATE 1 MG TAB PO SCH ×3 (10:31→17:09)
[2017-02-06] MEDS: MONTELUKAST SODIUM 10 MG TAB PO SCH (10:31)
[2017-02-06] MEDS: BACLOFEN 10 MG TAB PO SCH ×3 (10:31→17:10)
--- NOTE | 2017-02-06 13:09 | HHI.PR ---
Subjective Subjective Remarks using board to communicate getting ready to have lunch pain controlled pleasant no resp. distress no cp no sob ok for dc, pt informed, asking when she is leaving has brace to right leg (Berna Terrell) Review of Systems Constitutional Constitutional Remarks 12 point ROS difficult to complete. (Berna Terrell) Vitals/Results Intake & Output 02/05/17 02/05/17 02/06/17 14:59 22:59 06:59 Intake Total 840 ml 240 ml Balance 840 ml 240 ml Intake Oral 840 ml 240 ml # Voids 4 # Bowel Movements 0 Vital Signs Vital Signs Date Time Temp Pulse Resp B/P Pulse Ox O2 Delivery O2 Flow Rate FiO2 02/06/17 12:00 98.0 77 16 112/68 92 02/06/17 08:35 96 Nasal Cannula 2.00 02/06/17 08:00 98.3 65 16 111/48 98 02/06/17 04:00 98.0 73 16 101/50 95 02/06/17 00:01 98.6 66 16 105/51 95 02/05/17 20:10 75 02/05/17 19:55 98.3 71 16 102/51 96 02/05/17 19:43 97 Nasal Cannula 2.00 02/05/17 19:13 Nasal Cannula 2.00 02/05/17 16:00 98.5 61 18 125/65 100 (Berna Terrell) CBC/BMP: 02/05/17 0620 02/05/17 0620 Physical Exam General General Appearance: Well Developed, Anxious, Painful (Berna Terrell) Eyes Eye Exam: Pupils Equal, Pupils Reactive (Berna Terrell) Ears & Nose Ears & Nose Exam: Nasal Mucosa [place] (Berna Terrell) Throat Throat Exam: Oral Mucosa [place] & Moist (Berna Terrell) Neck Neck Exam: Neck Supple, Trachea Midline (Berna Terrell) Pulmonary Resp Exam: Decreased Bases Resp Remarks no rales (Berna Terrell) Cardiology CV Exam: Regular (Berna Terrell) Gastrointestinal/Abdomen GI Exam: Soft, Non-Tender, Bowel Sounds Present, Non-Distended (Berna Terrell) Musculoskeletal MS Exam: Rigidity, Unable to Ambulate MS Remarks contractures to hands, fingers, wrists, feet legs stiff Right leg with brace (Berna Terrell) Integumentary Skin Exam: Warm (Berna Terrell) Extremeties Extremities Exam: Pedal Pulses Palpable, Trace Edema (Berna Terrell) Neurologic Neuro Exam: Alert, Awake (Berna Terrell) VTE Prophylaxis VTE Prophylaxis Device: SCDs (Berna Terrell) Assessment/Plan Problem List: (1) Hypoxia (2) CHF (congestive heart failure) (3) Knee pain (4) Organic brain syndrome (5) Flexion contractures (6) Seizure disorder (7) Torticollis (8) Hx of traumatic brain injury (9) impacted distal femoral fx right Assessment/Plan 56-year-old female presented with right knee pain, noted hypoxic Mild CHF per x-ray findings, today noted with increased rales. Received Lasix in ED Hypoxia, etiology unclear, negative for PE Lasix PO now -2-D echocardiogram EF 50-55 - DuoNeb's PRN Continue with supplemental oxygen No antibiotics indicated at this time Pulmonology following, input appreciated -doing well, no sob, no rales, sats 92% on 2L/NC Acute right knee pain, notable contractures Negative for DVT xray showed impacted distal femoral fx -ortho consult appreciated, non surgical mgt. brace with padding applied, NWB, pain management uric acid ok -[place] 7.5/325 one tab by mouth every 4 when necessary for pain -pain stable History of traumatic brain injury, organic brain syndrome, history of torticollis, has multiple contractures Physical therapy Continue with baclofen, Zanaflex, Mobic, Artane Seizure disorder -Seizure precautions Continue Tegretol SCDs for DVT prophylaxis Pain well controlled, no surgery for fracture. No longer hypoxic stable for dc Discharge to SNF today F/U ortho 2 weeks F/U PCP Diet-heart healthy Activity-NWB right leg Discussed with patient Discussed with RN Discussed with Dr. Liz Discussed with CM This patient was seen by myself and Dr. Liz, this note is written on his behalf Discharge Minutes: 45 (Berna Terrell) Assessment/Plan pt seen and examined today as above labs reviewed [facility] help dw pt bhumi mohamud about plan of care plan for dc today (Yamila Liz MD) Problem Qualifiers (1) CHF (congestive heart failure): Qualified Code: I50.9 - Acute congestive heart failure, unspecified congestive heart failure type (2) Knee pain: Qualified Code: M25.561 - Acute pain of right knee Berna Terrell Feb 06, 2017 13:09 Yamila Liz MD Feb 06, 2017 13:23
[2017-02-06] MEDS ORDERED: IPRASOL NEB (13:11)
--- NOTE | 2017-02-06 13:11 | HHI.DS ---
Discharge Summary Admission Date Feb 03, 2017 at 10:28 Discharge Date: Feb 06, 2017 Admitting Diagnosis hypoxia, right knee pain (1) Hypoxia (2) CHF (congestive heart failure) (3) Organic brain syndrome (4) Seizure disorder (5) Torticollis (6) Knee pain (7) Hx of traumatic brain injury (8) Flexion contractures CBC/BMP: 02/05/17 0620 02/05/17 0620 Significant Findings Laboratory Tests Test 02/04/17 02/05/17 05:39 06:20 Red Blood Count 3.17 MIL/MM3 3.04 MIL/MM3 (4.00-5.30) (4.00-5.30) Hemoglobin 10.5 GM/DL 9.9 GM/DL (11.6-15.3) (11.6-15.3) Hematocrit 31.0 % 29.6 % (35.0-46.0) (35.0-46.0) Eosinophils (%) (Auto) 4.9 % (0.0-4.0) Blood Urea Nitrogen 21 MG/DL (7-18) Calcium Level 8.4 MG/DL 8.4 MG/DL (8.5-10.1) (8.5-10.1) Creatinine 0.46 MG/DL (0.50-1.00) Imaging Last Impressions Knee X-Ray 02/04/17 0000 Signed Impressions: Service Date/Time: Saturday, February 04, 2017 16:12 - CONCLUSION: Osteopenia and impacted distal femoral fracture. Elmer Morgan MD Lower Extremity Ultrasound 02/03/17 0000 Signed Impressions: Service Date/Time: Friday, February 03, 2017 08:31 - CONCLUSION: Negative for deep venous thrombosis. Harvey Montano MD FACR Chest X-Ray 02/03/17 0000 Signed Impressions: Service Date/Time: Friday, February 03, 2017 07:48 - CONCLUSION: Underated otherwise negative. Harvey Montano MD FACR CT Angiography 02/03/17 0000 Signed Impressions: Service Date/Time: Friday, February 03, 2017 09:49 - CONCLUSION: Probable mild congestive failure without central pulmonary emboli. Harvey Montano MD FACR Hospital Course This is a 56-year-old white female who has complained of right knee pain for the last couple of days. On examination the knee is obviously swollen and very painful to touch. She had blue- looking gel that had been rubbed in to the knee which appeared to be Biofreeze and there is currently an ice pack on the knee but she still complained of pain. The patient while in the emergency room had some hypoxia, was placed on oxygen and was admitted for further evaluation. The patient has a history of traumatic brain injury according to the record but can communicate with her hands and sign language and does shake her head yes and no. The patient was a poor historian and is unable to give situational data. The history was being gathered from the record. LABORATORY DATA Diagnostic data, white blood cell count 8.3, RBC 3.53. Hemoglobin 11.9. Hematocrit 34.1. Neutrophils percentage auto 80.7. PT INR 1.0. Chemistries, sodium 136, potassium 4.2, chloride 101, carbon dioxide 29, anion gap 6, BUN 21, creatinine 0.63. GFR 97. Random glucose 123. BNP 47. Magnesium 2.3. Phosphorus 3.1. Calcium 8.9. IMAGING Showed lower extremity ultrasound negative for DVT. Chest x-ray under-aerated otherwise negative. CT angiography shows mild congestive heart failure without central pulmonary emboli. Pt. admitted for: (1) Hypoxia (2) CHF (congestive heart failure) (3) Knee pain (4) Organic brain syndrome (5) Flexion contractures (6) Seizure disorder (7) Torticollis (8) Hx of traumatic brain injury (9) impacted distal femoral fx right During the course of the hospitalization, the following took place: was admitted, put on oxygen. DuoNeb's as needed were ordered. Pulmonology consultation Chest x-ray shows CHF, she was noted with rales. She was started on Lasix. 2-D echo was ordered. Continuous cardiac telemetry was ordered. Home medications were reviewed and initiated as indicated 2-D echo showed EF of 50-55%. Lasix was changed to by mouth. Hypoxia improved , lung sounds improved, less Rales. No wheezing Pulmonology recommendations noted Patient remained on oxygen at 2 L, sats 92%, no shortness of breath, no further episodes of hypoxia Acute right knee pain, notable contractures Negative for DVT xray showed impacted distal femoral fx -ortho consult appreciated, non surgical mgt. brace with padding applied, NWB, pain management uric acid ok -[place] 7.5/325 one tab by mouth every 4 when necessary for pain -pain stable History of traumatic brain injury, organic brain syndrome, history of torticollis, has multiple contractures Physical therapy ordered Continued with baclofen, Zanaflex, Mobic, Artane Seizure disorder -Seizure precautions Continue Tegretol SCDs for DVT prophylaxis Pain well controlled, no surgery for fracture. No longer hypoxic stable for dc Discharged to SNF F/U ortho 2 weeks F/U PCP Diet-heart healthy Activity-NWB right leg Pt Condition on Discharge: Stable Discharge Disposition: Discharge to SNF Discharge Instructions DIET: Follow Instructions for: Heart Healthy Diet Activities you can perform: Non Weight Bearing Follow up Referrals: Orthopedics - 2 Weeks New Medications: Morphine IR (Morphine IR) 15 Mg Tab 7.5 MG PO Q4H PRN PAIN #31 Ref 0 TAB Ipratropium-Albuterol Neb (Duoneb) 0.5-2.5 Mg/3 Ml Neb 1 AMPULE NEB Q4HR NEB PRN WHEEZING #60 ML Continued Medications: Acetaminophen (Tylenol) 325 Mg Tab 325 MG PO BID #1 Ref 0 TAB Alendronate (Fosamax) 70 Mg Tab 70 MG PO Q7D Osteoporosis Treatment #4 Ref 0 TAB Baclofen (Baclofen) 10 Mg Tab 10 MG PO TID Muscle Spasm Ref 0 TAB Bethanechol (Urecholine) 25 Mg Tab 25 MG PO Q8HR Urinary Symptom Managemen Ref [address] (Bisacodyl EC) 5 Mg Tabec 5 MG PO DAILY PRN CONSTIPATION Ref 0 TAB Calcium Carbonate (Calcium 600) 1,500 Mg Tab 1500 MG PO TAB Calcium Carbonate (Calcium 600) 1,500 Mg Tab 600 MG PO TAB Carbamazepine (Tegretol) 200 Mg Tab 200 MG PO BID #60 Ref 0 TAB Cholecalciferol (Vitamin D3) 1,000 Unit Tab 1000 UNITS PO DAILY Nutritional Supplement #1 Ref 0 BOTTLE Dextromethorphan HBr-Quinidine (Nuedexta 20-10 mg) 1 Cap Cap 1 CAP PO DAILY Pseudobulbar Affect #7 Ref 0 CAP Glycopyrrolate (Glycopyrrolate) 1 Mg Tab 1 MG PO TID #90 Ref 0 TAB Magnesium Hydroxide Liq (Milk of Magnesia Liq) 400 Mg/5 Ml Susp 30 ML PO ONCE Indigestion #30 Ref 0 ML Meloxicam (Mobic) 15 Mg Tab 15 MG PO DAILY Ref 0 TAB Montelukast (Singulair) 10 Mg Tab 10 MG PO DAILY #30 Ref 0 TAB Tizanidine (Zanaflex) 2 Mg Cap 2 MG PO TID Muscle Spasm Ref 0 CAP Trihexyphenidyl (Trihexyphenidyl) 2 Mg Tab 2 MG PO TID Parkinson Disease Mgmt #90 Ref 0 TAB Discontinued Medications: Carbamazepine (Tegretol) 200 Mg Tab 200 MG PO BID #60 Ref 0 TAB Dextromethorphan HBr-Quinidine (Nuedexta 20-10 mg) 1 Cap Cap 1 CAP PO BID Pseudobulbar Affect #60 Ref 0 CAP Lorazepam (Ativan) 0.5 Mg Tab 0.5 MG PO Q8H PRN ANXIETY AND/OR AGITATION Ref 0 TAB Berna TerrellP Feb 06, 2017 13:11
[2017-02-06] MEDS ORDERED: MSIR15 PO (13:24)
[2017-02-06] MEDS ORDERED: LIDOCAINE HCL 5% PATCH T-DERMAL SCH (16:00)
--- NOTE | 2017-02-06 18:48 | HHI.PR ---
Subjective Remarks 56 YOWF with Organic brain synd, CHF,Hypoxia braething betetr on 2 LNC Moans, follows simple commands C/o Right knee pain Knee in brace No new complaint Objective Vital Signs Vital Signs Date Time Temp Pulse Resp B/P Pulse Ox O2 Delivery O2 Flow Rate FiO2 02/06/17 16:00 97.4 65 16 102/44 98 02/06/17 15:44 92 Nasal Cannula 2.00 02/06/17 12:00 98.0 77 16 112/68 92 02/06/17 08:35 96 Nasal Cannula 2.00 02/06/17 08:00 2 Nasal Cannula 2.00 02/06/17 08:00 98.3 65 16 111/48 98 02/06/17 04:00 98.0 73 16 101/50 95 02/06/17 00:01 98.6 66 16 105/51 95 02/05/17 20:10 75 02/05/17 19:55 98.3 71 16 102/51 96 02/05/17 19:43 97 Nasal Cannula 2.00 02/05/17 19:13 Nasal Cannula 2.00 I/O 02/05/17 02/05/17 02/05/17 02/06/17 02/06/17 02/06/17 06:59 14:59 22:59 06:59 14:59 22:59 Intake Total 240 ml 840 ml 240 ml 360 ml Balance 240 ml 840 ml 240 ml 360 ml Intake Oral 240 ml 840 ml 240 ml 360 ml # Voids 1 4 2 # Bowel Movements 0 0 0 Result Diagram: 02/05/1720 02/05/17 06 Objective Remarks GENERAL: MBMN WF, mild sob SKIN: Warm and dry. HEAD: Normocephalic. EYES: No scleral icterus. No injection or drainage. NECK: Supple, trachea midline. No JVD or lymphadenopathy. CARDIOVASCULAR: Regular rate and rhythm without murmurs, gallops, or rubs. RESPIRATORY: Breath sounds equal bilaterally. No accessory muscle use. GASTROINTESTINAL: Abdomen soft, non-tender, nondistended. MUSCULOSKELETAL: No cyanosis, or edema. Contractures BACK: Nontender without obvious deformity. No CVA tenderness. A/P Assessment and Plan Organic brain syndrome Dysnoes, no PE or DVT Right Knee pain [place] PLAN: Supplement 02 pain controll Aerosol nebs PRN PO lasix DC Plans underway Vladimir Denise MD Feb 06, 2017 18:47
== END 2017-02-06 19:16 | DRG 292 ==
LOC: NEPE 07:34 → NEDA 10:28 → N06A 15:15
PROVIDERS: ADMIT Internal Medicine; ATTEND Internal Medicine
DX: I50.9 Heart failure, unspecified (principal); N17.9 Acute kidney failure, unspecified; E86.0 Dehydration; S72.401A Unspecified fracture of lower end of right femur, initial encounter for closed fracture; F07.81 Postconcussional syndrome; R13.10 Dysphagia, unspecified; M81.0 Age-related osteoporosis without current pathological fracture; G24.9 Dystonia, unspecified; G40.909 Epilepsy, unspecified, not intractable, without status epilepticus; R09.02 Hypoxemia; R73.9 Hyperglycemia, unspecified; M24.542 Contracture, left hand; M24.541 Contracture, right hand; M24.575 Contracture, left foot; M24.574 Contracture, right foot; M43.6 Torticollis; M24.572 Contracture, left ankle; M24.571 Contracture, right ankle; M24.532 Contracture, left wrist; M24.531 Contracture, right wrist; R09.81 Nasal congestion; F32.9 Major depressive disorder, single episode, unspecified; F41.9 Anxiety disorder, unspecified; Z87.820 Personal history of traumatic brain injury; Z88.0 Allergy status to penicillin; Z93.1 Gastrostomy status
CPT/HCPCS: 71010; 71275; 73560; 76937; 80048; 83735; 83880; 84100; 84550; 85025; 85027; 85610; 85730; 93306; 93970; 94640; 94664; 96374; J1644; J1885; J1940; J2270; L1830; Q9967

== ENCOUNTER 2017-07-19 16:30 | Emergency (ER) | payer MEDICARE, OTHER ==
[~2017-07-19] VITALS: Ht 152.4 cm; Wt 65.0 kg
[~2017-07-19 16:30] MED LIST changes: -ACET650T10; +BACL10TA PO; +BETH25 PO; -CALC500; +CALCTAB94 PO; -CARB100S; -CLEO300C2; -DIAZ5; -DOCU100S; +FLEE5TAB PO; -FLUO20SO3; +FOSA70TA PO; +GLYC1TAB17 PO; +IPRASOL NEB; -LEVS0.124; -LOPE1LIQ3; -LORA10TA7; -LORA2CON; -LORT5TAB; +MILKSUS PO; +MOBI15TA PO; +MONT10TA2 PO; +MSIR15 PO; +NUED20CA PO; -TAB-TAB; +TEGR200T PO; +TRIH2 PO; -TRIH2ELI; +TYLE325T PO; +VITA100064 PO; +ZANA2CAP PO
[2017-07-19] MEDS ORDERED: MORPHINE SULFATE 2 MG/ML INJ IV PUSH ONE (17:00)
[2017-07-19] MEDS ORDERED: SODIUM CHLORIDE 0.9% FLUSH 10 ML FLUSH IVF PRN (17:00)
[2017-07-19] MEDS ORDERED: SODIUM CHLORID 0.9% 500 ML INJ 500 ML IV ONE (17:00)
--- NOTE | 2017-07-19 17:17 | PD ---
HPI Chief Complaint: Musculoskeletal Complaint Time Seen by Provider: 16:44 Travel History International Travel<30 days: No Contact w/Intl Traveler<30days: No Traveled to known affect area: No History of Present Illness HPI 56-year-old female brought in from local nursing facility with advanced ALS, complaining of left knee pain for the past 2 days. There was no reported injury. Patient states pain is excruciating. Patient communicates with computer tablet. Patient denies shortness of breath. She denies chest pain. She is allergic to penicillin and pseudoephedrine. PFSH Past Medical History Arthritis: No Asthma: No Autoimmune Disease: Yes (ALLERGIC RHINITS) Blood Disorders: No Anxiety: Yes Depression: Yes Heart Rhythm Problems: No Cancer: No Cardiovascular Problems: No High Cholesterol: No Chemotherapy: No Chest Pain: No Congestive Heart Failure: No COPD: No Cerebrovascular Accident: No Diabetes: No Diminished Hearing: No Endocrine: No Gastrointestinal Disorders: Yes (PEG TUBE LLQ, CONSTIPATION, DYSPHAGIA) GERD: Yes Glaucoma: No Genitourinary: No Headaches: No Hepatitis: No Hiatal Hernia: No Hypertension: No Immune Disorder: No Kidney Stones: No Musculoskeletal: Yes (CONTRACTURES, WASTING AND ATROPHY) Neurologic: Yes (GENETIC TORSIONAL DYSTONIA, CAUDA EQUINA SYNDROME) Psychiatric: Yes Reproductive: No Respiratory: No Migraines: No Myocardial Infarction: No Radiation Therapy: No Renal Failure: No Seizures: Yes Sickle Cell Disease: No Sleep Apnea: No Thyroid Disease: No Ulcer: No Past Surgical History Abdominal Surgery: No AICD: No Appendectomy: No Arteriovenous Shunt: No Body Medical Devices: PEG TUBE LLQ Cardiac Surgery: No Cholecystectomy: No Ear Surgery: No Endocrine Surgery: Yes (TONSILLECTOMY) Eye Surgery: No Genitourinary Surgery: No Gynecologic Surgery: Yes (CHELSEY) Hysterectomy: Yes Insulin Pump: No Joint Replacement: No Neurologic Surgery: No Oral Surgery: No Pacemaker: No Thoracic Surgery: No Tonsillectomy: Yes Other Surgery: Yes Social History Alcohol Use: No Tobacco Use: No Substance Use: No Allergies-Medications (Allergen,Severity, Reaction): Coded Allergies: penicillin G (Unverified Allergy, Severe, unknown, 07/19/17) pseudoephedrine (Unverified Allergy, Severe, unknown, 07/19/17) Reported Meds & Prescriptions Reported Meds & Active Scripts Active Morphine IR (Morphine Sulfate) 15 Mg Tab 7.5 Mg PO Q4H PRN Reported Albuterol Neb (Albuterol Sulfate) 2.5 Mg/0.5 Ml Neb 2.5 Mg NEB Q4HR NEB Note: The Albuterol Sulfate Inhalation Solution is concentrated and must be diluted. Read complete instructions carefully before using. Calcium Carbonate 1,500 Mg Tab 1,500 Mg PO DAILY 1,500 mg calcium carbonate (600 mg elemental calcium) Nuedexta 20-10 mg (Dextromethorphan HBr-Quinidine) 20 Mg-10 Mg Cap 1 Cap PO DAILY Singulair (Montelukast Sodium) 10 Mg Tab 10 Mg PO DAILY Lexapro (Escitalopram Oxalate) 10 Mg Tab 10 Mg PO DAILY Deep Sea Nasal [place] (Saline) 0.65 % Spr 2 [place] NA QID Biofreeze Topical (Menthol Topical) 4 % Gel 1 Applic TOPICAL Q6HR PRN Flexeril (Cyclobenzaprine HCl) 10 Mg Tab 10 Mg PO TID Ropinirole 0.5 Mg Tab 0.75 Mg PO TID Baclofen 10 Mg Tab 10 Mg PO TID Glycopyrrolate 1 Mg Tab 1 Mg PO TID Singulair (Montelukast Sodium) 10 Mg Tab 10 Mg PO DAILY Milk of Magnesia Liq (Magnesium Hydroxide) 400 Mg/5 Ml Susp 30 Ml PO ONCE Urecholine (Bethanechol Chloride) 25 Mg Tab 25 Mg PO Q8HR Tegretol (Carbamazepine) 200 Mg Tab 200 Mg PO BID Vitamin D3 (Cholecalciferol) 1,000 Unit Tab 1,000 Units PO DAILY Mobic (Meloxicam) 15 Mg Tab 15 Mg PO DAILY Tylenol (Acetaminophen) 325 Mg Tab 325 Mg PO BID Bisacodyl EC (Bisacodyl) 5 Mg Tabec 5 Mg PO DAILY PRN Review of Systems ROS Limitations: Clinical Condition, Language Barrier Except as stated in HPI: all other systems reviewed are Neg General / Constitutional: No: Fever Eyes: No: Visual changes HENT: No: Headaches Cardiovascular: No: Chest Pain or Discomfort Respiratory: No: Shortness of Breath Gastrointestinal: No: Abdominal Pain Genitourinary: No: Dysuria Musculoskeletal: No: Pain Skin: No Rash Neurologic: No: Weakness Psychiatric: No: Depression Endocrine: No: Polydipsia Hematologic/Lymphatic: No: Easy Bruising Physical Exam Narrative GENERAL: Patient appears uncomfortable with the visible grimacing. SKIN: Warm and dry. Normal color. Normal turgor. No signs of trauma. HEAD: Atraumatic. Normocephalic. EYES: Pupils equal and round. No scleral icterus. No injection or drainage. ENT: No nasal bleeding or discharge. Mucous membranes pink and moist. NECK: Trachea midline. CARDIOVASCULAR: Regular rate and rhythm. RESPIRATORY: No accessory muscle use. Clear to auscultation. Breath sounds equal bilaterally. GASTROINTESTINAL: Abdomen soft, non-tender, nondistended. Hepatic and splenic margins not palpable. MUSCULOSKELETAL: Extremities without clubbing, cyanosis, or edema. Patient has chronic clubbing of both lower extremities. Left knee appears normal without effusion. Patient has increased pain with grimacing a patient of the distal thigh medially suggestive of possible NEUROLOGICAL: Awake and alert. Patient has limited movement secondary to her chronic ALS. She speaks with a computer tablet. PSYCHIATRIC: Appropriate mood and affect. Data Data Last Documented VS Vital Signs Date Time Temp Pulse Resp B/P (MAP) Pulse Ox O2 Delivery O2 Flow Rate FiO2 07/19/17 19:14 99.1 07/19/17 19:09 18 94 Nasal Cannula 2.00 07/19/17 17:30 95 Orders Orders Complete Blood Count With Diff (07/19/17 16:48) Comprehensive Metabolic Panel (07/19/17 16:48) Prothrombin Time / Inr (Pt) (07/19/17 16:48) Act Partial Throm Time (Ptt) (07/19/17 16:48) Ecg Monitoring (07/19/17 16:48) Iv Access Insert/Monitor (07/19/17 16:48) Oximetry (07/19/17 16:48) Sodium Chloride 0.9% Flush (Ns Flush) (07/19/17 17:00) Sodium Chlorid 0.9% 500 Ml Inj (Ns 500 M (07/19/17 17:00) Morphine Inj (Morphine Inj) (07/19/17 17:00) Us Leg Venous Doppler (07/19/17 16:48) Knee, Ltd (1 Or 2vws) (07/19/17 16:48) Splint Or Brace Apply/Monitor (07/19/17 19:32) Labs Laboratory Tests Test 07/19/17 17:24 White Blood Count 6.9 TH/MM3 Red Blood Count 3.73 MIL/MM3 Hemoglobin 12.1 GM/DL Hematocrit 35.3 % Mean Corpuscular Volume 94.5 FL Mean Corpuscular Hemoglobin 32.3 PG Mean Corpuscular Hemoglobin Concent 34.2 % Red Cell Distribution Width 14.9 % Platelet Count 371 TH/MM3 Mean Platelet Volume 8.9 FL Neutrophils (%) (Auto) 66.8 % Lymphocytes (%) (Auto) 18.8 % Monocytes (%) (Auto) 7.3 % Eosinophils (%) (Auto) 6.3 % Basophils (%) (Auto) 0.8 % Neutrophils # (Auto) 4.6 TH/MM3 Lymphocytes # (Auto) 1.3 TH/MM3 Monocytes # (Auto) 0.5 TH/MM3 Eosinophils # (Auto) 0.4 TH/MM3 Basophils # (Auto) 0.1 TH/MM3 CBC Comment DIFF FINAL Differential Comment Prothrombin Time 10.1 SEC Prothromb Time International Ratio 1.0 RATIO Activated Partial Thromboplast Time 27.5 SEC Blood Urea Nitrogen 13 MG/DL Creatinine 0.59 MG/DL Random Glucose 103 MG/DL Total Protein 7.9 GM/DL Albumin 4.0 GM/DL Calcium Level 9.1 MG/DL Alkaline Phosphatase 105 U/L Aspartate Amino Transf (AST/SGOT) 16 U/L Alanine Aminotransferase (ALT/SGPT) 16 U/L Total Bilirubin 0.4 MG/DL Sodium Level 135 MEQ/L Potassium Level 4.4 MEQ/L Chloride Level 97 MEQ/L Carbon Dioxide Level 31.7 MEQ/L Anion Gap 6 MEQ/L Estimat Glomerular Filtration Rate 105 ML/MIN [facility] Medical Decision Making Medical Screen Exam Complete: Yes Emergency Medical Condition: Yes Medical Record Reviewed: Yes Differential Diagnosis Arthritis flare. DVT. Left knee pain. Narrative Course Patient appears medically stable at time of exam. IV access is obtained. Labs ordered including CBC, CMP, and coag studies. X-ray of the left knee is ordered. Vascular Ultrasound left leg is ordered. Patient is given 2 mg morphine IV. CBC, CMP, and coagulation studies are unremarkable. Left knee x-ray shows: Diffuse osteopenia with apparent impacted distal femoral fracture. Ultrasound left leg shows: No signs of acute DVT. Call is placed to the orthopedic on-call, Dr. Fernandez. Patient was discussed fractures felt to be nonsurgical. These are similar to previous. Patient is placed in a knee immobilizer to the left leg. Patient should follow-up with Dr. Vickers at the nursing facility. No changes in current medications including her pain medicine. Diagnosis Primary Impression: Closed fracture of left distal femur Qualified Codes: S72.402A - Unspecified fracture of lower end of left femur, initial encounter for closed fracture Referrals: Primary Care Physician Patient Instructions: General Instructions Additional Instructions: CBC, CMP, and coagulation studies are unremarkable. Left knee x-ray shows: Diffuse osteopenia with apparent impacted distal femoral fracture. Ultrasound left leg shows: No signs of acute DVT. Call is placed to the orthopedic on-call, Dr. Fernandez. Patient was discussed fractures felt to be nonsurgical. These are similar to previous. Patient is placed in a knee immobilizer to the left leg. Patient should follow-up with Dr. Vickers at the nursing facility. No changes in current medications including her pain medicine. Med/Other Pt SpecificInfo: No Meds Exist/No RX given Disposition: 03 DISCHARGE TO SNF Condition: Stable Catalino Faulkner Jul 19, 2017 17:17
[2017-07-19 17:30] VITALS: BP 128/83; PULSE 95; RESP 18; O2SAT 94
[2017-07-19 17:42] LABS: AUTOMATED NEUTROPHIL # 4.6 TH/MM3 (1.8-7.7); BASOPHIL # 0.1 TH/MM3 (0-0.2); BASOPHIL % 0.8 % (0.0-2.0); EOSINOPHIL # 0.4 TH/MM3 (0-0.4); EOSINOPHIL % 6.3 % (0.0-4.0); HEMATOCRIT 35.3 % (35.0-46.0); HEMOGLOBIN 12.1 GM/DL (11.6-15.3); LYMPH % 18.8 % (9.0-44.0); LYMPHOCYTE # 1.3 TH/MM3 (1.0-4.8); MEAN CELL VOLUME 94.5 FL (80.0-100.0); MEAN CORPUSCULAR HEMOGLOBIN 32.3 PG (27.0-34.0); MEAN CORPUSCULAR HGB CONC 34.2 % (32.0-36.0); MEAN PLATELET VOLUME 8.9 FL (7.0-11.0); MONO % 7.3 % (0.0-8.0); MONOCYTE # 0.5 TH/MM3 (0-0.9); NEUT % 66.8 % (16.0-70.0); PLATELET COUNT 371 TH/MM3 (150-450); RED BLOOD COUNT 3.73 MIL/MM3 (4.00-5.30); RED CELL DISTRIBUTION WIDTH 14.9 % (11.6-17.2); WHITE BLOOD COUNT 6.9 TH/MM3 (4.0-11.0)
[2017-07-19 17:57] LABS: PROTHROMBIN TIME - PATIENT 10.1 SEC (9.8-11.6)
--- NOTE | 2017-07-19 17:57 | RADRPT ---
EXAM DATE/TIME: 07/19/2017 17:31 [facility] COMPARISON: KNEE RIGHT LTD (1 OR 2 VWS), February 04, 2017, 16:12. INDICATIONS : Left knee pain. MEDICAL HISTORY : unobtainable. SURGICAL HISTORY : unobtainable. ENCOUNTER: Initial ACUITY: 1 day PAIN SCORE: Non-responsive. LOCATION: Left Knee FINDINGS: Diffuse osteopenia with apparent impaction fracture of the distal femur. Remaining osseous structures appear intact. No significant joint effusion. Soft tissues are grossly unremarkable. CONCLUSION: 1. Diffuse osteopenia with apparent impacted distal femoral fracture. Jayy Olsen MD on July 19, 2017 at 17:52 Board Certified Radiologist. This report was verified electronically.
[2017-07-19 17:59] LABS: ALT (GPT) 16 U/L (10-53); AST (GOT) 16 U/L (15-37); BICARBONATE 31.7 MEQ/L (21.0-32.0); BLOOD UREA NITROGEN 13 MG/DL (7-18); CALCIUM 9.1 MG/DL (8.5-10.1); CHLORIDE 97 MEQ/L (98-107); CREATININE 0.59 MG/DL (0.50-1.00); GLOMERULAR FILTRATION RATE 105 ML/MIN (>89); GLUCOSE,RANDOM 103 MG/DL (74-106); SODIUM (NA) 135 MEQ/L (136-145)
[2017-07-19 18:01] LABS: ALKALINE PHOSPHATASE 105 U/L (45-117); TOTAL BILIRUBIN ADULT 0.4 MG/DL (0.2-1.0); TOTAL PROTEIN 7.9 GM/DL (6.4-8.2)
--- NOTE | 2017-07-19 18:29 | RADRPT ---
EXAM DATE/TIME: 07/19/2017 17:40 [facility] COMPARISON: No previous studies available for comparison. INDICATIONS : Left leg pain. MEDICAL HISTORY : Gastroesophageal reflux disease. Genetic torsional dystonia. Cauda equina syndrome. Pseudobulbar affe ct. SURGICAL HISTORY : Tonsillectomy. Hysterectomy. ENCOUNTER: Initial ACUITY: 1 day PAIN SCORE: 7/10 LOCATION: Left leg. TECHNIQUE: Venous ultrasound of the leg was performed from the inguinal ligament to the proximal calf. Real-mandy e, color Doppler and spectral tracing, compression and augmentation techniques were used. FINDINGS: There is normal compressibility of the deep venous system from the inguinal region to the proximal ca lf. No echogenic clot is seen in the lumen of the common femoral, femoral, popliteal, and posterior tibial veins. There is a normal response of the venous system to proximal and distal augmentation an d respiration. CONCLUSION: No evidence of left lower extremity DVT. Fausto Santos MD on July 19, 2017 at 18:25 Board Certified Radiologist. This report was verified electronically.
[2017-07-19 19:09] VITALS: RESP 18; O2SAT 94
[2017-07-19 19:14] VITALS: TEMP 99.1
[2017-07-19] MEDS ORDERED: CYCL10TA PO (19:34)
[2017-07-19] MEDS ORDERED: LEXA10TA PO (19:34)
[2017-07-19] MEDS ORDERED: ALBU.5I NEB (19:34)
[2017-07-19] MEDS ORDERED: MONT10TA2 PO (19:34)
[2017-07-19] MEDS ORDERED: ROPI0.5T PO (19:34)
[2017-07-19] MEDS ORDERED: DEEP0.65 (19:34)
[2017-07-19] MEDS ORDERED: CALC600T4 PO (19:34)
[2017-07-19] MEDS ORDERED: MENT4GEL2 TOPICAL (19:34)
[2017-07-19] MEDS ORDERED: NUED20CA PO (19:34)
[2017-07-19 21:32] VITALS: BP 118/57; PULSE 74; RESP 18; O2SAT 95
[2017-07-19 22:00] VITALS: BP 143/67; PULSE 78; RESP 18; O2SAT 97
[2017-07-20 07:24] VITALS: BP 124/66; PULSE 72; RESP 17; O2SAT 95
== END 2017-07-20 10:25 ==
LOC: NEPC 16:30 → NEPB 07-20 10:25
DX: S72.402A Unspecified fracture of lower end of left femur, initial encounter for closed fracture (principal); G12.21 Amyotrophic lateral sclerosis; M79.605 Pain in left leg; X58.XXXA Exposure to other specified factors, initial encounter
CPT/HCPCS: 73560; 80053; 85025; 85610; 85730; 93971; 96374; 99284; J2270; J7040; L1830